=== PATIENT | male | born 1955 | race Caucasian/White ===

== ENCOUNTER 2021-02-22 14:29 | Outpatient (CLI) | payer MEDICARE, SELFPAY | END 2021-02-22 14:30 | disposition home or self-care (01) | PROVIDERS: PCP Physician Assistant; Visit Provider Physician Assistant | DX: H93.13 Tinnitus, bilateral (principal); H90.3 Sensorineural hearing loss, bilateral | CPT/HCPCS: 92557; 92567 ==

== ENCOUNTER 2021-12-18 14:14 | Outpatient (CLI) | payer MEDICARE, OTHER, SELFPAY ==
--- NOTE | ~2021-12-18 | XR_ITS ---
EXAMINATION: XR hip BI 2V w AP pelvis DATE: 12/18/2021 14:44 INDICATION: Chronic bilateral hip pain TECHNIQUE: Anteroposterior view of the pelvis and anteroposterior and frog-leg lateral views of the l eft hip and anteroposterior and frog-leg lateral views of the right hip and were obtained. COMPARISON: 03/11/2014 FINDINGS: Alignment is normal. No fracture or suspected avascular necrosis. Mild osteoarthritis at the bilatera l hip joints with relatively preserved joint spaces but small marginal osteophytes. Bilateral sacral iliac joint spaces appear relatively preserved with no erosions to suggest inflammatory sacroiliitis. Soft tissues are unremarkable. IMPRESSION: 1. Mild bilateral hip osteoarthritis. Reviewed, dictated and finalized at location A.
--- NOTE | ~2021-12-18 | XR_ITS ---
EXAMINATION: XR chest 2V DATE: 12/18/2021 14:44 INDICATION: Chest pain and shortness of breath. TECHNIQUE: Frontal and lateral views of the chest were obtained. COMPARISON: Chest 2 views 12/10/2007 FINDINGS: There is eventration of right hemidiaphragm. There is chronic blunting of the lateral costo phrenic angles, likely prominent extrapleural fat. No pleural effusion or pneumothorax. The heart siz e is normal. IMPRESSION: 1. No acute cardiopulmonary disease. Reviewed, dictated and finalized at location B.
--- NOTE | 2021-12-18 14:47 | ECG_ITS ---
Measurements Intervals [place] Rate: 95 P: 44 OR: 159 QRS: -3 QRSD: 90 T: 30 QT: 354 QTc: 447 Interpretive Statements SINUS RHYTHM WITH FREQUENT VENTRICULAR PREMATURE COMPLEXES BASELINE ARTIFACT BORDERLINE ECG NO PREVIOUS ECG AVAILABLE FOR COMPARISON Electronically Signed On 12-18-2021 17:05:59 CDT by Cyrus Cruz M.D.
== END 2021-12-18 14:15 | disposition home or self-care (01) ==
PROVIDERS: PCP Family Medicine; Visit Provider Physician Assistant Medical
DX: R07.9 Chest pain, unspecified (principal); R06.00 Dyspnea, unspecified; M25.559 Pain in unspecified hip; G89.29 Other chronic pain; M16.0 Bilateral primary osteoarthritis of hip
CPT/HCPCS: 71046; 73521; 93005

== ENCOUNTER 2022-03-02 10:45 | Outpatient (CLI) | payer MEDICARE, OTHER, SELFPAY ==
--- NOTE | 2022-03-02 10:47 | EST_ITS ---
Patient Info Name: Phi Kee Age: 66 years : 1955 Gender: Male Ht: 69 in Wt: 295 lbs BSA: 2.62 m2 HR: 74 bpm BP: 126 / 80 mmHg Heart Rhythm: Sinus Rhythm Exam Date: 03/02/2022 11:06 AM Exam Location: [facility] Stress Patient Status: Outpatient Admit Date: 03/02/2022 Staff Ordering Physician: Mian Kennedy DO Attending Provider: Mian Kennedy DO Exercise Technologist: [facility] [place] CT Exercise Physician: Mian Kennedy DO Exam Type: CA stress test treadmill Study Info Indications R06.00 - Dyspnea, unspecified R07.9 - Chest pain, unspecified A treadmill exercise stress test was performed. Summary 1. 1. Inconclusive submaximal Alex exercise stress test for ischemic ST changes by ECG criteria limited by hip pain. He achieved only 105 bpm which is 67% MPHR for age group. 2. 2. Poor functional capacity, achieving 5 METs of workload. 3. 3. Appropriate HR response to exercise. 4. 4. Appropriate HR recovery at 1 minute post exercise. 5. 5. No imaging with stress testing. 6. 6. Patient informed of the above results. Protocol: Alex Stress ECG Details Stage: REST Duration (min): 0 min : 54 sec Speed (mph): 0.0 Grade (%): 0 HR (bpm): 74 SBP (mmHg): 126 DBP (mmHg): 80 METS: --- Stage: REST Duration (min): 11 min : 57 sec Speed (mph): 0.0 Grade (%): 0 HR (bpm): 74 SBP (mmHg): 126 DBP (mmHg): 80 METS: --- Stage: STAGE 1 Duration (min): 1 min : 0 sec Speed (mph): 1.7 Grade (%): 10 HR (bpm): 83 SBP (mmHg): 126 DBP (mmHg): 80 METS: --- Stage: STAGE 1 Duration (min): 2 min : 0 sec Speed (mph): 1.7 Grade (%): 10 HR (bpm): 93 SBP (mmHg): 126 DBP (mmHg): 80 METS: --- Stage: STAGE 1 Duration (min): 3 min : 0 sec Speed (mph): 1.7 Grade (%): 10 HR (bpm): 100 SBP (mmHg): 126 DBP (mmHg): 80 METS: --- Stage: STAGE 2 Duration (min): 0 min : 14 sec Speed (mph): 2.5 Grade (%): 12 HR (bpm): 102 SBP (mmHg): 126 DBP (mmHg): 80 METS: --- Stage: RECOVERY Duration (min): 0 min : 45 sec Speed (mph): 0.0 Grade (%): 0 HR (bpm): 104 SBP (mmHg): 126 DBP (mmHg): 80 METS: --- Stage: RECOVERY Duration (min): 1 min : 45 sec Speed (mph): 0.0 Grade (%): 0 HR (bpm): 104 SBP (mmHg): 117 DBP (mmHg): 56 METS: --- Stage: RECOVERY Duration (min): 2 min : 45 sec Speed (mph): 0.0 Grade (%): 0 HR (bpm): 99 SBP (mmHg): 140 DBP (mmHg): 60 METS: --- Stage: RECOVERY Duration (min): 3 min : 45 sec Speed (mph): 0.0 Grade (%): 0 HR (bpm): 96 SBP (mmHg): 140 DBP (mmHg): 60 METS: --- Stage: RECOVERY Duration (min): 4 min : 45 sec Speed (mph): 0.0 Grade (%): 0 HR (bpm): 95 SBP (mmHg): 140 DBP (mmHg): 60 METS: --- Stage: RECOVERY Duration (min): 5 min : 45 sec Speed (mph): 0.0 Gra
--- NOTE | 2022-03-02 10:48 | ECHO_ITS ---
Patient Info Name: Phi Kee Age: 66 years : 1955 Gender: Male Ht: 69 in Wt: 295 lbs BSA: 2.62 m2 HR: 87 bpm BP: 126 / 80 mmHg Heart Rhythm: Sinus Rhythm Technical Quality: Fair Exam Date: 03/02/2022 11:50 AM Exam Location: [facility] Pulmonary Patient Status: Outpatient Admit Date: 03/02/2022 Staff Ordering Physician: Mian Kennedy DO Gas Controller: Mary Alice Brady RDCS Attending Provider: Mian Kennedy DO Referring Physician: Brent SIMS; Exam Type: CA echo dop color flow w con Study Info Indications - Dyspnea, unspecified Complete two-dimensional, color flow and Doppler transthoracic echocardiogram is performed with contrast to opacify the left ventricle and to improve the deliniation of the left ventricle endocardial borders. Contrast/Agitated Saline Contrast/Ag. Saline: Definity Amount: 3.00 ml Administered By: Mary Alice Brady RDCS Existing IV Access: No IV Access Condition: patent with no signs of infiltration New IV Access: Right Summary 1. Left ventricular chamber dimension is mildly enlarged. 2. Definity contrast administered improved wall motion interpretation. 3. Left ventricular systolic function is normal, estimated at 60-65%. 4. The left ventricular diastolic function is grade I diastolic dysfunction. 5. E/e' 13 is mildly elevated. 6. Left atrial chamber dimension is mildly enlarged. 7. No pulmonary hypertension, estimated pulmonary arterial systolic pressure is 20 mmHg. 8. There is loculated moderate size pericardial effusion measuring 1.6 cm located in basal posterior left ventricular region.. Left Ventricle E/e' 13 is mildly elevated. Definity contrast administered improved wall motion interpretation. Left ventricular chamber dimension is mildly enlarged. Left ventricular systolic function is normal, estimated at 60-65%. The left ventricular diastolic function is grade I diastolic dysfunction. Right Ventricle Right ventricular systolic function is normal and with normal TAPSE 2.7 cm. Right ventricular chamber dimension is normal. Left Atria Left atrial chamber dimension is mildly enlarged. Right Atria Right atrial chamber dimension is normal. Aortic Valve The aortic valve is trileaflet. There is no aortic valve stenosis. There is no aortic valve regurgitation. Pulmonic Valve There is no pulmonic regurgitation. Mitral Valve There is no mitral valve stenosis. There is no mitral valve regurgitation. Tricuspid Valve There is no tricuspid valve regurgitation. No pulmonary hypertension, estimated pulmonary arterial systolic pressure is 20 mmHg. Pericardium/Pleural There is loculated moderate size pericardial effusion measuring 1.6 cm located in basal posterior left ventricular region.. No cardiac tamponade. Inferior Vena Cava Normal inferior vena cava with >50% collapse upon inspiration consistent with normal right atrial pressure, 5 mmHg. Aorta The aortic root size at the sinus of Valsalva is normal. Left Ventricular Outflow Tract Name Value Normal LVOT 2D LVOT Diameter 2.15 cm LVOT Doppler
[2022-03-02] MEDS: PERFLUTREN LIPID MICROSPHERES 1.5 ML VIAL DILUTED TO 10 ML TOTAL VOLUME IV PUSH (11:40)
== END 2022-03-02 10:46 | disposition home or self-care (01) ==
PROVIDERS: PCP Family Medicine; Visit Provider Internal Medicine Cardiovascular Disease
DX: R07.89 Other chest pain (principal); I31.3 Pericardial effusion (noninflammatory); R06.00 Dyspnea, unspecified; I51.7 Cardiomegaly
CPT/HCPCS: 93017; C8929; Q9957

== ENCOUNTER 2025-02-08 14:51 | Outpatient (CLI) | payer MEDICARE, OTHER, SELFPAY ==
[2025-02-08 16:29] LABS: Prostate Specific Antigen 1.1 ng/mL (< OR = 4.0)
[2025-02-08 16:34] LABS: Vitamin D 25 Hydroxy 52.8 ng/mL
[2025-02-08 16:47] LABS: Alanine Aminotransferase 18 U/L (6-50); Albumin Level 4.3 g/dL (3.5-5.1); Alkaline Phosphatase 65 U/L (38-126); Anion Gap 12 mmol/L (4-12); Aspartate Amino Transferase 24 U/L (17-59); Bilirubin,Total 0.7 mg/dL (0.2-1.3); Blood Urea Nitrogen 27 mg/dL (9-20); Calcium 9.3 mg/dL (8.4-10.2); Carbon Dioxide 24 mmol/L (22-30); Chloride 104 mmol/L (98-107); Cholesterol 126 mg/dL (0-200); Estimated Glomerular Filt Rate 38; Glucose 140 mg/dL (65-110); HDL Direct 39 mg/dL; Potassium 4.3 mmol/L (3.4-5.0); Sodium 140 mmol/L (137-145); Total Protein 7.2 g/dL (6.3-8.2); Triglycerides 168 mg/dL (<150)
[2025-02-08 17:11] LABS: Creatinine Urine 321.7 mg/dL
[2025-02-08 17:16] LABS: MALB Creatinine Ratio 11.1 mg/g (0-30); Microalbumin Urine Random 35.6 mg/L (0-16.7)
[2025-02-08 17:18] LABS: Thyroid Stimulating Hormone 0.813 uIU/mL (0.465-4.680)
[2025-02-08 17:27] LABS: LDL Cholesterol Direct 46 mg/dL
[2025-02-08 17:50] LABS: Vitamin B12 > 1000.0 pg/mL (239-931)
== END 2025-02-08 14:52 | disposition home or self-care (01) ==
PROVIDERS: PCP Family Medicine; Referring Provider Nurse Practitioner Family; Visit Provider Student in an Organized Health Care Education/Training Program
DX: E53.8 Deficiency of other specified B group vitamins (principal); E78.2 Mixed hyperlipidemia; I10 Essential (primary) hypertension; E66.9 Obesity, unspecified; E11.649 Type 2 diabetes mellitus with hypoglycemia without coma; Z12.5 Encounter for screening for malignant neoplasm of prostate; Z79.899 Other long term (current) drug therapy
CPT/HCPCS: 36415; 80053; 80061; 82043; 82306; 82607; 84153; 84439; 84443; G0103

== ENCOUNTER 2025-05-12 15:51 | Outpatient (CLI) | payer MEDICARE, OTHER, SELFPAY ==
--- NOTE | ~2025-05-12 | XR_ITS ---
EXAMINATION: XR knee RT 3V, 05/12/2025 15:55 CDT HISTORY: M25.561 - Pain in right knee COMPARISON: No comparisons available. Findings: No acute fracture or malalignment. No significant degenerative changes. Soft tissues unremarkable. Impression: No acute fracture or malalignment. Reviewed, dictated and finalized at location A. Impression: No acute fracture or malalignment.
--- NOTE | ~2025-05-12 | XR_ITS ---
EXAMINATION: XR knee LT 3V, 05/12/2025 15:55 CDT HISTORY: M25.561 - Pain in right knee COMPARISON: No comparisons available. Findings: No acute fracture or malalignment. No significant degenerative changes. Soft tissues unremarkable. Impression: No acute fracture or malalignment. Reviewed, dictated and finalized at location A. Impression: No acute fracture or malalignment.
[2025-05-12 16:52] LABS: Anion Gap 9 mmol/L (4-12); Blood Urea Nitrogen 20 mg/dL (9-20); Calcium 9.1 mg/dL (8.4-10.2); Carbon Dioxide 28 mmol/L (22-30); Chloride 104 mmol/L (98-107); Estimated Glomerular Filt Rate 50; Glucose 107 mg/dL (65-110); Sodium 141 mmol/L (137-145)
[2025-05-12 17:00] LABS: Potassium 4.8 mmol/L (3.4-5.0)
== END 2025-05-12 15:52 | disposition home or self-care (01) ==
PROVIDERS: Nurse Practitioner Family; PCP Family Medicine; Visit Provider Student in an Organized Health Care Education/Training Program
DX: M25.561 Pain in right knee (principal); M25.562 Pain in left knee; E11.649 Type 2 diabetes mellitus with hypoglycemia without coma; Z79.899 Other long term (current) drug therapy
CPT/HCPCS: 36415; 73562; 80048; 82306